=== PATIENT | female | born 1995 | race Caucasian/White ===

== ENCOUNTER 2021-08-10 15:13 | Outpatient (CLI) | payer OTHER, SELFPAY ==
--- NOTE | 2021-08-10 15:23 | US_ITS ---
WS: [id number] EARLY OBSTETRICAL ULTRASOUND (<14 WEEKS). HISTORY: SUPERVISION OF NORMAL COMPARISON: None available. Single intrauterine gestational sac is identified. Cardiac activity at 153 BPM. [place]-rump length gerard sures 1.1 cm which corresponds to a gestation of 7w1d. Normal-appearing yolk sac and amnion demonstra bernarda. No subchorionic hemorrhage. No free fluid. Normal size ovaries with no mass. US/US OB <=14 wk fetus w transvag IMPRESSION: 1. Single intrauterine gestation of 7 weeks 1 day with an EDC of 03/28/2022. 2. Normal cardiac activity.
== END 2021-08-10 15:14 | disposition home or self-care (01) ==
LOC: RAD 15:21
PROVIDERS: PCP Family Medicine; Visit Provider Family Medicine
DX: Z34.91 Encounter for supervision of normal pregnancy, unspecified, first trimester (principal); Z3A.01 Less than 8 weeks gestation of pregnancy
CPT/HCPCS: 76801; 76817

== ENCOUNTER 2021-11-04 15:27 | Outpatient (CLI) | payer OTHER, SELFPAY ==
--- NOTE | 2021-11-04 15:40 | US_ITS ---
WS: [id number] OBSTETRICAL ULTRASOUND COMPLETE HISTORY: ANATOMY COMPARISON: 08/10/2021 Single intrauterine gestation in Cephalic presentation. Cervix is Closed and normal length. Cervical length is 4.0 cm. Normal amount of amniotic fluid surrounds the fetus. Placenta: Posterior, no previa. Placenta grade 1 Heart: 133 BPM. Four chambers are identified. Outflow tracts are poorly visualized. Anatomy: Intracranial structures and spine are normal. kidneys, stomach and urinary bladd er are unremarkable. Abdominal wall, three-vessel cord and cord insertion site are normal. 4 extremities are present. profile: Unremarkable. Gender: Probably female. measurements: BPD = 4.6 cm = 19w5d HC = 16.6 cm = 19w2d AC = 14.6 cm = 19w6d FL = 3.3 cm = 20w2d EFW: 325 g. Biometry is internally concordant. AGA by ultrasound: 19w6d SEBASTIAN by ultrasound: 03/25/2022 US/US OB >= 14 weeks fetus [id number] IMPRESSION: 1. Single intrauterine gestation of 19w6d with an SEBASTIAN of 03/25/2022. Appropria te growth since the prior ultrasound. 2. Limited evaluation of the cardiac outflow tracts. Otherwise the screening s urvey is unremarkable.
== END 2021-11-04 15:28 | disposition home or self-care (01) ==
PROVIDERS: PCP Family Medicine; Visit Provider Family Medicine
DX: Z34.82 Encounter for supervision of other normal pregnancy, second trimester; Z3A.19 19 weeks gestation of pregnancy
CPT/HCPCS: 76805

== ENCOUNTER 2022-02-01 17:55 | Outpatient (CLI) | payer OTHER, SELFPAY ==
[2022-02-01] VITALS (10 sets, daily range): BP systolic 103–115; BP diastolic 64–75; PULSE 80–93; RESP 17; TEMP 36.2; BMI 29.2
[2022-02-01 19:11] LABS: Urine Appearance Clear (CLEAR); Urine Color Colorless (Yellow); pH Urine 7 (5-7)
[2022-02-01 19:12] LABS: Bilirubin Urine Neg (Negative); Blood Urine Neg (Negative); Glucose Urine UA Norm (Normal); Ketones Urine Negative (Negative); Leukocyte Esterase Urine 1+ (Negative); Nitrate Urine Negative (Negative); Protein Urine Neg (Negative); Specific Gravity, Urine 1.005 (1.005-1.030); Urobilinogen Urine Norm (Negative)
[2022-02-01 19:16] LABS: Bacteria Urine 2+ /hpf; RBC Urine 0-4 /hpf (0-2); Squamous Epithelial Cell Urine 0-4 /hpf (0-5)
[2022-02-01 19:17] LABS: Add Urine Culture? Yes
[2022-02-02 00:26] VITALS: BP 108/66; PULSE 90; RESP 15; TEMP 36.6
== END 2022-02-01 20:00 | disposition home or self-care (01) ==
LOC: OPOB 17:55 → OBGYN 18:00
PROVIDERS: PCP Family Medicine; Visit Provider Family Medicine
DX: O26.899 Other specified pregnancy related conditions, unspecified trimester (principal); Z3A.00 Weeks of gestation of pregnancy not specified; R10.9 Unspecified abdominal pain
CPT/HCPCS: 59025; 81001; 87086; 99211

== ENCOUNTER → 2022-02-18 15:55 | Outpatient (BNVA) | payer OTHER, SELFPAY | PROVIDERS: PCP Family Medicine; Visit Provider Family Medicine | DX: O09.90 Supervision of high risk pregnancy, unspecified, unspecified trimester (principal); Z3A.00 Weeks of gestation of pregnancy not specified | CPT/HCPCS: 80053; 84550; 85025 ==

== ENCOUNTER → 2022-03-03 10:43 | Outpatient (BNVA) | payer OTHER, SELFPAY | PROVIDERS: PCP Family Medicine; Visit Provider Family Medicine | DX: O09.90 Supervision of high risk pregnancy, unspecified, unspecified trimester (principal); Z3A.00 Weeks of gestation of pregnancy not specified | CPT/HCPCS: 85025 ==

== ENCOUNTER → 2022-03-10 15:45 | Outpatient (BNVA) | payer OTHER, SELFPAY | PROVIDERS: PCP Family Medicine; Visit Provider Family Medicine | DX: D69.6 Thrombocytopenia, unspecified (principal) | CPT/HCPCS: 85025 ==

== ENCOUNTER 2022-03-14 19:53 | Outpatient (CLI) | payer OTHER, SELFPAY ==
[2022-03-14] VITALS (7 sets, daily range): BP systolic 106–117; BP diastolic 70–81; PULSE 77–110; RESP 16; BMI 30.2
== END 2022-03-14 22:31 | disposition home or self-care (01) ==
LOC: OPOB 19:57 → OBGYN 19:58
PROVIDERS: PCP Family Medicine; Visit Provider Family Medicine
DX: O26.899 Other specified pregnancy related conditions, unspecified trimester (principal); Z3A.00 Weeks of gestation of pregnancy not specified; R10.9 Unspecified abdominal pain
CPT/HCPCS: 59025; 99211

== ENCOUNTER 2022-03-19 07:00 | Inpatient (IN) | payer OTHER, SELFPAY ==
[2022-03-19] VITALS (62 sets, daily range): BP systolic 83–120; BP diastolic 47–80; PULSE 57–86; TEMP 36.1–36.3; O2SAT 99–100
--- NOTE | 2022-03-19 06:39 | P.HP_ITS ---
Providers/Chief Complaint Admitting Physician: Werner Pascal MD Primary Care Provider: Werner Pascal MD Chief Complaint: IOL History of Present Illness Lianna Sawyer is a 27 year old at 39.0 weeks gestation by LMP consistent with 7-week ultrasound. Her is complicated by history of gestational thrombocytopenia, now with gestational thrombocytopenia on predniso ne. The patient has been feeling well. She denies any chest pains, shortness of breath, nausea, vomiting, flashes of light, vaginal bleeding, leakage of fluid. She began to develop thrombocytopenia that was first noted on 02/12/2022. Consultation with perinatology was done and the patient was started on prednisone 20 mg twice a day for 1 week that was gradually tapered down to a current dose of 20 mg once a day. Her platelets have increased and have stayed in the low 100s with this dosage. Despite the initial low numbers, perinatology feels that this is likely due to to gestational hypertension, however ITP would be in the differential. Anesthesia was consulted prior to delivery and they felt that as long as the numbers are around 100 or better, that a laboring epidural would be doable. Medications/Allergies Home Medications Medication Instructions Recorded Confirmed Last Taken Type ferrous sulfate 325 mg (65 mg 325 mg PO DAILY 02/01/22 03/14/22 03/14/22 History iron) tablet (Iron (ferrous sulfate)) prenat.vits,shona,[id number] 1 tab PO DAILY 02/01/22 03/14/22 03/14/22 History Allergies Allergy/AdvReac Type Severity Reaction Status Date / Time codeine Allergy ADR-Nausea Verified 03/14/22 21:28 PFSH Acute 2 PFSH: Social History (Updated 03/19/22 @ 06:45 by Werner Pascal MD) Smoking and tobacco status: never smoked Alcohol intake: never Substance/Drug Use: never Physical Exam Narrative: General: Alert and oriented x3 Eyes: Pupils equal round and reactive to light and accommodation Mouth: Mucous membranes moist, pharynx non-erythematous Cardiac: Regular rate and rhythm without murmurs Lungs: Clear to auscultation bilaterally without wheezes, crackles or rhonchi Abdomen: Soft, non-tender, fundus consistent with gestational age Extremities: Trace edema in the bilateral lower extremities A&P Assessment and plan (1) Gestational thrombocytopenia: Status: Acute (2) Intrauterine : Status: Acute Plan The patient is doing well at this time. She is having no signs of bleeding or complications related to thrombocytopenia. We will proceed with induction of labor with Pitocin. CBC is currently pending. We will plan for a labor and epidural as long as her platelets are around 100 or better. The patient will need to be on a tapering dose of prednisone . The patient is GBS negative. Proceed with routine care otherwise. All questions were answered. Patient and her are in agreement with the current plan of care. Attestations Medical Necessity Statement*: The patient will be here for greater than 2 midnights due to routine intrapartum and management of labor and delivery. Coding Level of Care Code Acute [facility] Teacher for g Fwd Diagnoses Gestational thrombocytopenia O99.119; D69.6 Intrauterine Z34.90
[2022-03-19 07:09] LABS: Basophils % 0.3 %; Eosinophils # 0.1 10^3/uL (0.0-0.8); Eosinophils % 1.6 %; Hematocrit 34.6 % (37.0-47.0); Hemoglobin 11.3 g/dL (11.5-15.3); Lymphocytes # 1.5 10^3/uL (0.8-4.8); Lymphocytes % 19.1 %; Mean Corpuscular HGB Conc 32.7 g/dL (30.0-36.0); Mean Corpuscular Hemoglobin 30.1 pg (28.0-34.0); Mean Platelet Volume 13.4 fL (7.4-10.4); Monocytes # 0.5 10^3/uL (0.2-0.9); Monocytes % 6.4 %; Neutrophils # 5.51 10^3/uL (1.8-7.7); Neutrophils % 71.8 %; Nucleated Red Blood Cells % 0 %; Platelet Count 119 10^3/cmm (130-400); Red Blood Count 3.76 10^6/uL (4.1-5.3); Red Cell Distribution Width 12.9 % (12.1-15.1); White Blood Count 7.7 10^3/uL (4.0-10.0)
[2022-03-19] MEDS: dextrose 5%-lactated ringers 1,000 ML 125 ML IV (07:22)
[2022-03-19] MEDS: oxytocin 30 UNIT/500 ML BAG IV (07:25)
[2022-03-19] MEDS: alum-mag-hydroxide-sime 30 mL UDC PO (07:49)
[2022-03-19] MEDS: dextrose 5%-lactated ringers 1,000 ML 105 ML IV (15:02)
[2022-03-19] MEDS: lactated ringers 1,000 ML 999 ML IV ×2 (18:26→19:31)
--- NOTE | 2022-03-19 19:15 | ANES.PREANE2 ---
Pre-Anesthetic Assessment Height/Weight: Height 1.63 m Weight 79.379 kg Temp Pulse BP Pulse Ox 97.3 F L 71 116/65 100 03/19/22 16:04 03/19/22 19:29 03/19/22 19:29 03/19/22 19:29 Preop Diagnosis: IUP AICHA Familial anesthetic complications: none Was Beta Elder taken within 24 hours: N/A Was Clonidine taken within 24 hours: N/A Last intake: meal 0600 clears currently Social No alcohol and No tobacco Exam alert and oriented x 3 Airway Submandibular: within normal limits Cervical ROM: within normal limits Mallampati: Class II Dentition: full History/ROS No significant complaints Neuropsych thrombocyopenia during . PLT 119 currently. Anesthetic Plan ASA status: 2 Anesthesia: Anesthesia Evaluation and Regional (specify below) (epidural) Risk of > 500 ml blood loss (7ml/kg in children): Yes, adequate IV access and fluids planned Medications/Allergies Home Medications Medication Instructions Recorded Confirmed Last Taken Type ferrous sulfate 325 mg (65 mg 325 mg PO DAILY 02/01/22 03/19/22 03/18/22 History iron) tablet (Iron (ferrous sulfate)) prenat.vits,shona,mad-ybgp-qigxi 1 tab PO DAILY 02/01/22 03/19/22 03/18/22 History prednisone 10 mg tablet 10 mg PO DAILY 03/19/22 03/19/22 03/18/22 History Allergies Allergy/AdvReac Type Severity Reaction Status Date / Time codeine Allergy ADR-Nausea Verified 03/14/22 21:28 Current Medications Generic Name Dose Route Start Last Admin Trade Name Freq PRN Reason Stop Dose Admin Al Hydrox/Mg Hydrox/Simethicone 30 ml 03/19/22 06:46 03/19/22 07:49 Dwzp-Xyl-Auxabkxei-Deandra 30 Ml Udc PO 30 ml Q4H PRN Administration INDIGESTION Oxytocin 30 unit in 500 mls @ 2 mls/hr 03/19/22 06:45 03/19/22 10:06 Pitocin IV 20 milliunit/min .Q24H ALEC 20 mls/hr Titration Protocol 2 MILLIUNIT/MIN Dextrose/Lactated Ringer's 1,000 mls @ 125 mls/hr 03/19/22 07:00 03/19/22 18:26 Dextrose 5%-Lactated Ringers IV Infused .Q8H ALEC Infusion Lactated Ringer's 1,000 mls @ 999 mls/hr 03/19/22 18:17 03/19/22 19:31 Lactated Ringers IV 999 mls/hr .Q1H1M PRN Administration See label comments PFSH Anesthesia Social History (Updated 03/19/22 @ 06:45 by Werner Pascal MD) Smoking and tobacco status: never smoked Alcohol intake: never Substance/Drug Use: never Female Reproductive History : 4 Data Anesthesia : 03/19/22 06:35 Short CBC 03/19/22 Range/Units 06:35 WBC 7.7 (4.0-10.0) 10^3/uL Hgb 11.3 L (11.5-15.3) g/dL Hct 34.6 L (37.0-47.0) % MCV 92.0 (81-99) fl Plt Count 119 L (130-400) 10^3/cmm Neut % (Auto) 71.8 % Neut # (Auto) 5.51 (1.8-7.7) 10^3/uL Cardiac Studies: No Data to Display
--- NOTE | 2022-03-19 19:36 | ANES.PROC ---
Anesthesia Procedures Procedure/Date: 03/19/22 epidural Epidural: Time Out Performed: Yes Consents Signed: Procedure Consent Consent: from patient, risks and benefits reviewed and patient agrees to proceed Lumbar Level: L2-L3 Epidural position: sitting Epidural procedure: sterile prep of area, 1% lidocaine to numb the area, 18 g needle, negative for paresthesia passed, test dose given, 1.5% xylocaine 1:200k epi, placed PCEA, no systemic response, sterile dressing applied, L.U.D. no apparent complications and 0.2% Ropiavacaine @ mls/hr (13) Additional Comments: GRIS at 5, taped at 12 at skin.
[2022-03-19] MEDS: ondansetron 2 mg/ML SDV 2 mL 4 MG IVP (20:46)
[2022-03-20] VITALS (28 sets, daily range): BP systolic 91–124; BP diastolic 55–71; PULSE 63–92; RESP 15–16; TEMP 36.6–36.8; O2SAT 96–98
[2022-03-20] MEDS: dextrose 5%-lactated ringers 1,000 ML 125 ML IV (00:14)
--- NOTE | 2022-03-20 02:55 | PM.DELIVERY ---
Delivery Note: Date of delivery: March 20, 2022 Pre-delivery diagnoses: 1. Intrauterine at 39.1 weeks gestation 2. Gestational thrombocytopenia on prednisone Post-delivery diagnoses: 1. Intrauterine status post spontaneous vaginal delivery at 39.1 weeks gestation 2. Gestational thrombocytopenia on prednisone 3. Delivery of healthy female weighing 7 pounds 0 ounces with Apgars of 9 and 9 Procedure: Spontaneous vaginal delivery Delivering Physician: Werner Pascal MD Estimated blood loss (mL): 150 Findings: 1. Intact placenta with central umbilical cord insertion site. 2. Delivery of healthy female weighing 7 pounds 0 ounces with Apgars of 9 and 9 Pre-Delivery Course: Lianna Sawyer is a 27 year old G4 now P3 status post spontaneous vaginal delivery at 39.1 weeks gestation by LMP consistent with 7-week ultrasound.? Her was complicated by history of gestational thrombocytopenia, now with gestational thrombocytopenia on prednisone. She began to develop thrombocytopenia that was first noted on 02/12/2022.? Consultation with perinatology was done and the patient was started on prednisone 20 mg twice a day for 1 week that was gradually tapered down to a current dose of 20 mg once a day.? Her platelets have increased and have stayed in the low 100s with this dosage.? Despite the initial low numbers, perinatology feels that this is likely due to to gestational hypertension, however ITP would be in the differential.? Anesthesia was consulted prior to delivery and they felt that as long as the numbers are around 100 or better, that a laboring epidural would be doable. The patient was brought in for induction of labor on the morning of 03/19/2022 and was 2 cm dilated at that time. The patient was started on IV Pitocin and a CBC was done showing a platelet count of 119. The patient made gradual change and was 4 cm by the evening of 03/19/2022. She had stalled out in the range, so AROM was performed at approximately 11:15 PM. Clear fluid was noted. Patient then continued to make steady change and by 2:18 AM on 03/20/2022 she was complete. Delivery: The patient began pushing at 2:27 AM on 03/20/2022. The patient pushed well and the infant delivered in the OA position at 2:36 AM. There is no nuchal cord. The right shoulder was the anterior shoulder and it delivered with ease. The rest of the delivered with ease. Infant was crying immediately upon delivery and the mouth and nose were bulb suctioned by myself. The infant was placed on the mother's chest where the nurses were waiting to care for her. The cord was clamped by myself after approximately 1 minute and cut by the 's father. Cord blood was obtained. The cord was then drained of blood and traction was placed on the umbilical cord and the uterus was massaged. The placenta delivered without complication at 2:41 AM on 03/20/2022. The placenta was noted to be intact with a central umbilical cord insertion site. The cervix was inspected and no lacerations were noted. The vaginal wall was inspected and no lacerations were noted. The patient had some heavier bleeding initially that has now slowed down. This will continue to be watched. A&P Assessment and plan (1) Spontaneous vaginal delivery: Status: Acute (2) Gestational thrombocytopenia: Status: Acute Coding Level of Care Code Acute It Infrastructure Specialist for Chg Fwd Diagnoses Spontaneous vaginal delivery O80 Gestational thrombocytopenia O99.119; D69.6
[2022-03-20] MEDS: HYDROcodone-acetaminophen 5-325 mg Tablet PO (04:42)
[2022-03-20] MEDS: benzocaine-menthol 78 gm Canister 1 SPRAY TOPICAL (05:39)
[2022-03-20] MEDS: lanolin oint 7 gm 1 APPLIC TOPICAL (05:39)
[2022-03-20] MEDS: docusate sodium 100 mg Capsule PO ×2 (12:23→18:32)
[2022-03-20] MEDS: ibuprofen 800 mg tablet PO ×2 (12:23→18:32)
[2022-03-20] MEDS: prenatal vitamin Capsule 1 CAP PO (12:23)
[2022-03-20] MEDS: predniSONE 10 mg Tablet PO (12:24)
[2022-03-20 16:46] LABS: Hemoglobin 10.1 g/dL (11.5-15.3); Mean Corpuscular HGB Conc 33.7 g/dL (30.0-36.0); Mean Corpuscular Hemoglobin 30.6 pg (28.0-34.0); Mean Corpuscular Volume 90.9 fl (81-99); Mean Platelet Volume 12.9 fL (7.4-10.4); Platelet Count 107 10^3/cmm (130-400); Red Cell Distribution Width 12.8 % (12.1-15.1); White Blood Count 8.2 10^3/uL (4.0-10.0)
[2022-03-21] MEDS: ibuprofen 800 mg tablet PO ×2 (00:56→09:01)
[2022-03-21 05:00] VITALS: BP 101/59; PULSE 62; RESP 16; TEMP 36.7
[2022-03-21] MEDS: docusate sodium 100 mg Capsule PO (09:01)
[2022-03-21] MEDS: prenatal vitamin Capsule 1 CAP PO (09:01)
--- NOTE | 2022-03-21 09:24 | ANE.PACU2 ---
Inpatient post-anesthesia follow up: Airway intact: Yes Vital signs: Temperature 98.0 F Pulse Rate 62 Respiratory Rate 16 Blood Pressure 101/59 Pulse Oximetry 96 Oxygen Delivery Me thod Room Air Oxygen Flow Rate Fraction of Inspir ed Oxygen Hydration adequate: Yes Nausea and vomiting: No Pain level: 1 Mental status: Baseline
--- NOTE | 2022-03-21 09:28 | PM.DCS ---
Discharge Providers Date of Admission: 03/19/22 07:00 Date of Discharge: March 21, 2022 Attending Provider at Admission: Werner Pascal MD Attending Provider at Discharge: Werner Pascal MD Primary Care Provider: Werner Pascal MD Diagnoses at Discharge Discharge Diagnosis (1) Spontaneous vaginal delivery: Status: Acute (2) Gestational thrombocytopenia: Status: Acute Other Information Additional DC diagnoses/information: 1.? Intrauterine status post spontaneous vaginal delivery at 39.1 weeks gestation 2.? Gestational thrombocytopenia on prednisone 3.? Delivery of healthy infant female weighing 7 pounds 0 ounces with Apgars of 9 and 9 Reason for Visit Reason for Visit: IOL Hospital Course Hospital Course Lianna Sawyer is a 27 year old G4 now P3 status post spontaneous vaginal delivery at 39.1 weeks gestation by LMP consistent with 7-week ultrasound.? Her was complicated by history of gestational thrombocytopenia, now with gestational thrombocytopenia on prednisone. She began to develop thrombocytopenia that was first noted on 02/12/2022.? Consultation with perinatology was done and the patient was started on prednisone 20 mg twice a day for 1 week that was gradually tapered down to a current dose of 20 mg once a day.? Her platelets have increased and have stayed in the low 100s with this dosage.? Despite the initial low numbers, perinatology felt that this is likely due to to gestational hypertension, however ITP would be in the differential.? The patient was brought in for induction of labor on the morning of 03/19/2022 and was 2 cm dilated at that time.? The patient was started on IV Pitocin and a CBC was done showing a platelet count of 119.? The patient made gradual change and was 4 cm by the evening of 03/19/2022.? She had stalled out in the range, so AROM was performed at approximately 11:15 PM.? Clear fluid was noted.? Patient then continued to make steady change and by 2:18 AM on 03/20/2022 she was complete. The patient began pushing at 2:27 AM on 03/20/2022.? The patient pushed well and the delivered in the OA position at 2:36 AM.? There is no nuchal cord.? The right shoulder was the anterior shoulder and it delivered with ease.? The rest of the infant delivered with ease.? was crying immediately upon delivery and the mouth and nose were bulb suctioned by myself.? The was placed on the mother's chest where the nurses were waiting to care for her.? The cord was clamped by myself after approximately 1 minute and cut by the infant's father.? Cord blood was obtained.? The cord was then drained of blood and traction was placed on the umbilical cord and the uterus was massaged.? The placenta delivered without complication at 2:41 AM on 03/20/2022.? The placenta was noted to be intact with a central umbilical cord insertion site.? The cervix was inspected and no lacerations were noted.? The vaginal wall was inspected and no lacerations were noted.? The patient had some heavier bleeding initially that has now slowed down.? the patient is doing well. She is ambulating, voiding, passing gas and tolerating food by mouth. Her bleeding has decreased well. She is showing no signs of significant bruising issues. Her platelets are 107. We will plan to have her decrease to prednisone 10 mg daily for 5 days, followed by 5 mg for 5 days, then 2.5 mg for 5 days and then stop. We will plan to recheck her platelets in 2 weeks to be sure that they are not decreasing significantly. We will check again at 6 weeks . The patient is breast-feeding well and having no complications with this. Overall the patient is doing well and we can discharge home today. Routine discharge instructions were discussed including precautions for bleeding. Follow-up at 6 weeks or sooner if her platelets are dropping. We will give orders to get levels checked at 2 weeks and 6 weeks . Physical Exam Narrative: General: Alert and oriented x3 Cardiac: Regular rate and rhythm without murmurs Lungs: Clear to auscultation bilaterally without wheezes, crackles or rhonchi Abdomen: Soft, mild tenderness over uterus. The uterus is firm and 2 cm below the umbilicus. Extremities: Trace edema in the bilateral lower extremities Urinary Catheter Management: Schmitz: Cath Placed During This Visit: yes, but has since been removed by the nurse Reason for Continuing Indwelling Catheter: Required Immobilization for Trauma or Surgery or Anesthesia Urinary Catheter Date of Insertion: 03/19/22 Urinary Catheter Time of Insertion: 20:26 Date Urinary Catheter Removed: 03/20/22 Time Urinary Catheter Discontinued: 02:26 Discharge Data Studies Completed and Pending Laboratory Results WBC 8.2 10^3/uL (4.0-10.0) 03/20/22 16:30 RBC 3.30 10^6/uL (4.1-5.3) L 03/20/22 16:30 Hgb 10.1 g/dL (11.5-15.3) L 03/20/22 16:30 Hct 30.0 % (37.0-47.0) L 03/20/22 16:30 MCV 90.9 fl (81-99) 03/20/22 16:30 MCH 30.6 pg (28.0-34.0) 03/20/22 16:30 MCHC 33.7 g/dL (30.0-36.0) 03/20/22 16:30 RDW 12.8 % (12.1-15.1) 03/20/22 16:30 Plt Count 107 10^3/cmm (130-400) L 03/20/22 16:30 MPV 12.9 fL (7.4-10.4) H 03/20/22 16:30 Neut % (Auto) 71.8 % 03/19/22 06:35 Lymph % (Auto) 19.1 % 03/19/22 06:35 [place] % (Auto) 6.4 % 03/19/22 06:35 Eos % (Auto) 1.6 % 03/19/22 06:35 Baso % (Auto) 0.3 % 03/19/22 06:35 Neut # (Auto) 5.51 10^3/uL (1.8-7.7) 03/19/22 06:35 Lymph # (Auto) 1.5 10^3/uL (0.8-4.8) 03/19/22 06:35 [place] # (Auto) 0.5 10^3/uL (0.2-0.9) 03/19/22 06:35 Eos # (Auto) 0.1 10^3/uL (0.0-0.8) 03/19/22 06:35 Baso # (Auto) 0.0 10^3/uL (0.0-0.1) 03/19/22 06:35 Nucleated RBC % (auto) 0 % 03/19/22 06:35 Nucleated RBCs # 0.0 /100WBC 03/19/22 06:35 Vitals Last Vital Signs Temp 98.0 F 03/21/22 05:00 Pulse 62 03/21/22 05:00 Resp 16 03/21/22 05:00 BP 101/59 03/21/22 05:00 Pulse Ox 96 03/20/22 16:30 Discharge Plan Discharge Patient Disposition: Home Condition: Good Prescriptions: New ibuprofen 800 mg Tablet 800 mg PO TID Qty: 60 0RF prednisone 5 mg tablet 5 mg PO DAILY Qty: 10 0RF Rx Instructions: Take 10mg daily for 5 days, then 5mg daily for 5 days then 2.5mg daily for 5 days then stop. Continued prenat.vits,shona,nwp-kinb-kizie capsule 1 tab PO DAILY 0RF ferrous sulfate [Iron (ferrous sulfate)] 325 mg (65 mg iron) Tablet 325 mg PO DAILY Qty: 30 0RF Discontinued prednisone 10 mg tablet 10 mg PO DAILY 0RF Discharge Orders: Discharge Order (Routine); Ordered 03/21/22 Ordered By: Werner Pascal Referrals: Werner Pascal MD [Primary Care Provider] - 6 Weeks Discharge Diet: Regular Discharge Activity: Limit activity as instructed Patient Instructions: Depression (DC), Bleeding (DC), Preeclampsia and Eclampsia After Delivery (GEN), OB Discharge Report, OB Food/Drug Interaction Guide, OB Care at Home, Opioid Safety, OB [facility] - [facility], OB Vaginal Deliveries, Abnormal Bleeding Activity Restrictions/Additional Instructions: Nothing per vagina for 6 weeks. If you have any concern for increased bruising or bleeding, please contact Dr. Pascal right away for a repeat CBC. I would recommend taking showers over taking baths for the first 6 weeks to decrease risk for infection. Discharge Attestations Time Spent in Discharge Care*: greater than 30 min Quality Metrics Clinical Quality Measures [ No reported AMI, CVA or VTE this stay] Coding Level of Care Code Acute Chg FW DC note Diagnoses Spontaneous vaginal delivery O80 Gestational thrombocytopenia O99.119; D69.6
[2022-03-21 10:00] VITALS: BP 103/67; PULSE 80; RESP 16; TEMP 36.7; O2SAT 97
== END 2022-03-21 10:00 | disposition home or self-care (01) | DRG 807 ==
LOC: OPOB 07:51 → OBGYN 07:51
PROVIDERS: Admitting Provider Family Medicine; PCP Family Medicine; Visit Provider Family Medicine
DX: O99.12 Other diseases of the blood and blood-forming organs and certain disorders involving the immune mechanism complicating childbirth (principal); Z37.0 Single live birth; D69.6 Thrombocytopenia, unspecified; Z3A.39 39 weeks gestation of pregnancy
CPT/HCPCS: 36415; 51702; 59409; 85025; 85027; J2405; J2795; J7512

== ENCOUNTER → 2022-04-06 11:02 | Outpatient (BNVA) | payer OTHER, SELFPAY | PROVIDERS: PCP Family Medicine; Visit Provider Family Medicine | DX: O99.119 Other diseases of the blood and blood-forming organs and certain disorders involving the immune mechanism complicating pregnancy, unspecified trimester (principal); D69.6 Thrombocytopenia, unspecified | CPT/HCPCS: 85025 ==

== ENCOUNTER → 2022-05-03 14:37 | Outpatient (BNVA) | payer OTHER, SELFPAY | PROVIDERS: PCP Family Medicine; Visit Provider Family Medicine | DX: Z39.2 Encounter for routine postpartum follow-up (principal); D69.6 Thrombocytopenia, unspecified | CPT/HCPCS: 85025; 87624 ==

== ENCOUNTER 2022-05-12 13:23 | Oncology outpatient (recurring) (ONCR) | payer OTHER, SELFPAY | END 2022-05-27 23:59 | disposition home or self-care (01) | PROVIDERS: PCP Family Medicine; Visit Provider Internal Medicine Hematology & Oncology | DX: D69.6 Thrombocytopenia, unspecified (principal); O99.119 Other diseases of the blood and blood-forming organs and certain disorders involving the immune mechanism complicating pregnancy, unspecified trimester; Z3A.00 Weeks of gestation of pregnancy not specified; Z79.52 Long term (current) use of systemic steroids; Z79.899 Other long term (current) drug therapy | CPT/HCPCS: 80503; 85025 ==

== ENCOUNTER 2022-10-15 16:50 | Emergency (ER) | payer BC, SELFPAY ==
[2022-10-15 16:55] VITALS: BP 141/92; PULSE 80; RESP 13; TEMP 36.8; O2SAT 99; BMI 26.2
--- NOTE | 2022-10-15 18:49 | ED_ITS ---
HPI - Female Genitourinary General: Chief complaint: Vaginal Bleeding Stated complaint: heavy vaginal bleeding Time Seen by Provider: 10/15/22 18:02 History of Present Illness: Patient is a 27-year-old female comes to the ED with vaginal bleeding. Patient gave to a healthy baby back in February 2022. 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 she has not had any vaginal bleeding or a period since the start of her symptoms 2 days ago. She had light spotting 2 days ago and it has since progressed into more heavier bleeding. Yesterday she was going through 1 pad every 3 or so hours. Today she is averaging 1 pad every 1-2 hours. Denies any abdominal pain, fevers, nausea/vomiting, bladder or bowel symptoms. She endors es feeling some generalized fatigue and weakness. She also reports some very mild cramping. Associated symptoms: Deny abdominal pain, headache(s) or nausea Review of Systems Const: Denies: fever(s), chills or fatigue Eyes: Denies: change in vision or eye discomfort ENMT: Denies: throat pain, odynophagia, nasal discharge or nasal congestion Card: Denies: chest pain, palpitations, edema, swelling of feet/ankles, dyspnea on exertion or orthopnea Resp: Denies: dyspnea, productive cough or non-productive cough GI: Denies: abdominal pain, nausea, vomiting, diarrhea, constipation or hematochezia : Reports: vaginal bleeding and pelvic pain (Mild cramping); Denies: flank pain, dysuria or hematuria Musc: Denies: neck pain, back pain or extremity swelling Skin/Breast: Denies: rash or new lesions Neuro: Denies: headache(s), numbness in extremities or weakness in extremities PFS ED PFSH: Medical History Gestational thrombocytopenia PCOS (polycystic ovarian syndrome) Surgical History No history of previous surgery Family History Other Anesthesia complication Dementia Stroke Denies family history of Diabetes CAD (coronary artery disease) Clotting disorder Hyperlipidemia Psychiatric illness Chronic kidney disease (CKD) Suicide Bleeding disorder Lung disease Cancer Hypertension Social History Smoking and tobacco status: never smoked Alcohol intake: never Physical Exam Const: COMMON NORMALS: no acute distress, patient oriented x3 and alert GENERAL APPEARANCE: cooperative and comfortable HENMT: COMMON NORMALS: normocephalic HEAD & SCALP: normocephalic MOUTH: Normal oral and palatal mucosa present THROAT: posterior oropharynx normal and uvula midline Neck/C-Spine: COMMON NORMALS: supple GENERAL: Yes normal visual inspection Resp: COMMON NORMALS: normal respiratory effort, No retractions, No use of accessory muscles and clear to auscultation bilaterally AUSCULTATION: clear to auscultation bilaterally Cardio: COMMON NORMALS: regular rate, regular rhythm, S1 normal heart sound present, S2 normal heart sound present, No gallops present (Cardio), No clicks present (Cardio), No murmurs present (Cardio) and Peripheral pulses 2+ throughout RATE: regular rate RHYTHM: regular rhythm HEART SOUNDS: S1 normal heart sound present and S2 normal heart sound present PERIPHERAL PULSES: Peripheral pulses 2+ throughout GI: COMMON NORMALS: Normal to inspection, nondistended, normoactive bowel sounds present, Soft to palpation, non-tender and no masses PALPATION: Yes Soft to palpation : COMMON NORMALS: Yes no CVA tenderness BLADDER/KIDNEY EXAM: Yes no CVA tenderness Back/Pelvis: COMMON NORMALS: no CVA tenderness Extremity: COMMON NORMALS: normal to inspection Neuro: COMMON NORMALS: patient oriented x3 SENSORIUM/ORIENTATION: Yes alert GAIT: Yes Normal gait present Skin: GENERAL SKIN EXAM: dry skin Course Vital Signs: Vital signs: Vital Signs Temperature 98.3 F 10/15/22 16:55 Pulse Rate 80 10/15/22 16:55 Respiratory Rate 13 10/15/22 16:55 Blood Pressure 141/92 10/15/22 16:55 Pulse Oximetry 99 10/15/22 16:55 Oxygen Delivery Me thod 10/15/22 16:55 [facility] - Female Medical Decision Making Patient is a 27-year-old female comes to the ED with vaginal bleeding. Patient gave to a healthy baby back in February 2022. 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 she has not had any vaginal bleeding or a period since the start of her symptoms 2 days ago. She had light spotting 2 days ago and it has since progressed into more heavier bleeding. Yesterday she was going through 1 pad every 3 or so hours. Today she is averaging 1 pad every 1-2 hours. Denies any abdominal pain, fevers, nausea/vomiting, bladder or bowel symptoms. Vitals are stable. Exam is benign. CBC, CMP and UA are unremarkable. hCG is negative. Ultrasound of the pelvis showed no acute findings. Patient was diagnosed with menorrhagia and was discharged home. She was told to follow-up with her [facility] doctor next week for reevaluation. Strict return to ED precautions given. Patient understood and agreed with plan. Lab Data I reviewed the patient's lab results. 10/15/22 18:45 10/15/22 18:45 Radiology Impressions Pelvic/Transvag US 10/15/22 19:18 IMPRESSION: 1. No acute abnormality in the pelvis. 2. Incidental/nonacute findings are listed in the report. Laboratory Results WBC 5.8 10^3/uL (4.0-10.0) 10/15/22 18:45 RBC 4.26 10^6/uL (4.1-5.3) 10/15/22 18:45 Hgb 12.9 g/dL (11.5-15.3) 10/15/22 18:45 Hct 38.3 % (37.0-47.0) 10/15/22 18:45 MCV 89.9 fl (81-99) 10/15/22 18:45 MCH 30.3 pg (28.0-34.0) 10/15/22 18:45 MCHC 33.7 g/dL (30.0-36.0) 10/15/22 18:45 RDW 12.0 % (12.1-15.1) L 10/15/22 18:45 Plt Count 164 10^3/cmm (130-400) 10/15/22 18:45 MPV 11.9 fL (7.4-10.4) H 10/15/22 18:45 Neut % (Auto) 51.8 % 10/15/22 18:45 Lymph % (Auto) 30.3 % 10/15/22 18:45 [place] % (Auto) 6.7 % 10/15/22 18:45 Eos % (Auto) 10.0 % 10/15/22 18:45 Baso % (Auto) 0.9 % 10/15/22 18:45 Neut # (Auto) 2.99 10^3/uL (1.8-7.7) 10/15/22 18:45 Lymph # (Auto) 1.8 10^3/uL (0.8-4.8) 10/15/22 18:45 [place] # (Auto) 0.4 10^3/uL (0.2-0.9) 10/15/22 18:45 Eos # (Auto) 0.6 10^3/uL (0.0-0.8) 10/15/22 18:45 Baso # (Auto) 0.1 10^3/uL (0.0-0.1) 10/15/22 18:45 Nucleated RBC % (auto) 0 % 10/15/22 18:45 Nucleated RBCs # 0.0 /100WBC 10/15/22 18:45 Sodium 142 mmol/L (136-145) 10/15/22 18:45 Potassium 4.7 mmol/L (3.5-5.1) 10/15/22 18:45 Chloride 108 mmol/L (98-107) H 10/15/22 18:45 Carbon Dioxide 22 mmol/L (22-29) 10/15/22 18:45 Anion Gap 16.7 (5-19) 10/15/22 18:45 BUN 19 mg/dL (6-20) 10/15/22 18:45 Creatinine 0.7 mg/dL (0.5-0.9) 10/15/22 18:45 GFR Calculation 98.9 mL/min (90-130) 10/15/22 18:45 Glucose 91 mg/dL (65-115) 10/15/22 18:45 Calculated Osmolality 296 mOsm/kg (285-295) H 10/15/22 18:45 Calcium 8.9 mg/dL (8.5-10.5) 10/15/22 18:45 Total Bilirubin 0.3 mg/dL (0.15-1.2) 10/15/22 18:45 AST 26 U/L (0-32) 10/15/22 18:45 ALT 25 U/L (0-33) 10/15/22 18:45 Alkaline Phosphatase 81 U/L (35-105) 10/15/22 18:45 Total Protein 6.9 g/dL (6.6-8.7) 10/15/22 18:45 Albumin 4.0 g/dL (3.5-5.2) 10/15/22 18:45 Globulin 2.9 g/dL (1.3-4.6) 10/15/22 18:45 HCG, Qual Negative (Negative) 10/15/22 18:45 Urine Color Red (Yellow) 10/15/22 19:16 Urine Appearance Cloudy (CLEAR) A 10/15/22 19:16 Urine pH 6 (5-7) 10/15/22 19:16 Ur Specific Hiko 1.020 (1.005-1.030) 10/15/22 19:16 Urine Protein 1+ (Negative) H 10/15/22 19:16 Urine Glucose (UA) Norm (Normal) 10/15/22 19:16 Urine Ketones 1+ (Negative) H 10/15/22 19:16 Urine Blood 3+ (Negative) H 10/15/22 19:16 Urine Nitrate Negative (Negative) 10/15/22 19:16 Urine Bilirubin Neg (Negative) 10/15/22 19:16 Urine Urobilinogen Norm mg/dL (Negative) 10/15/22 19:16 Ur Leukocyte Esterase Negative (Negative) 10/15/22 19:16 Urine RBC Too numerous to cnt /hpf (0-2) H 10/15/22 19:16 Urine WBC None /hpf (0-5) 10/15/22 19:16 Ur Squamous Epith Cells 0-4 /hpf (0-5) H 10/15/22 19:16 Amorphous Sediment Not Reportable 10/15/22 19:16 Urine Bacteria None /hpf (NONE) 10/15/22 19:16 Discharge Plan Discharge Patient Disposition: Home Clinical Impression: Menorrhagia Qualifiers: Menorrhagia type: with regular cycle Qualified Code(s): N92.0 - Excessive and frequent menstruation with regular cycle Condition: Stable Prescriptions: No Action acetaminophen [Tylenol] 325 mg capsule 325 mg PO QID PRN norethindrone (contraceptive) 0.35 mg tablet 0.35 mg PO DAILY Qty: 28 11RF prenat.vits,shona,[id number] capsule 1 tab PO DAILY Iron (ferrous sulfate) 325 mg (65 mg iron) Tablet 325 mg PO DAILY Qty: 30 0RF Discharge Orders: Discharge ED (Routine); Ordered 10/15/22 Ordered By: Werner Valdez Referrals: Werner Pascal MD [Primary Care Provider] - Discharge Diet: Regular Discharge Activity: Increase activity as tolerated Patient Instructions: Menorrhagia (ED) Activity Restrictions/Additional Instructions: Follow-up with medical provider as directed in the next 2 to 3 days for reevaluation. Return to the ED or your medical provider if condition worsens. Please read and understand discharge instructions. Thank you for choosing [facility] for your healthcare needs today. Please realize this is an emergency room and that we are providing you with a medical screening exam and this may not be complete and all inclusive of all the testing and or work up that you may need to determine your ailment or severity of your illness. It is very important that you follow up as instructed or that you return to the Emergency Department should you have concerns or if your condition changes or worsens in any way. 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
[2022-10-15 18:56] LABS: Basophils # 0.1 10^3/uL (0.0-0.1); Basophils % 0.9 %; Eosinophils # 0.6 10^3/uL (0.0-0.8); Hematocrit 38.3 % (37.0-47.0); Hemoglobin 12.9 g/dL (11.5-15.3); Lymphocytes # 1.8 10^3/uL (0.8-4.8); Lymphocytes % 30.3 %; Mean Corpuscular HGB Conc 33.7 g/dL (30.0-36.0); Mean Corpuscular Hemoglobin 30.3 pg (28.0-34.0); Mean Corpuscular Volume 89.9 fl (81-99); Mean Platelet Volume 11.9 fL (7.4-10.4); Monocytes # 0.4 10^3/uL (0.2-0.9); Monocytes % 6.7 %; Neutrophils # 2.99 10^3/uL (1.8-7.7); Neutrophils % 51.8 %; Nucleated Red Blood Cells % 0 %; Platelet Count 164 10^3/cmm (130-400); Red Blood Count 4.26 10^6/uL (4.1-5.3); White Blood Count 5.8 10^3/uL (4.0-10.0)
[2022-10-15 19:10] LABS: HCG, Serum Qual Negative (Negative)
[2022-10-15 19:15] LABS: Alanine Aminotransferase 25 U/L (0-33); Alkaline Phosphatase 81 U/L (35-105); Anion Gap 16.7 (5-19); Aspartate Amino Transferase 26 U/L (0-32); Blood Urea Nitrogen 19 mg/dL (6-20); Calcium 8.9 mg/dL (8.5-10.5); Carbon Dioxide 22 mmol/L (22-29); Chloride 108 mmol/L (98-107); Globulin 2.9 g/dL (1.3-4.6); Glomerular Filtration Rate 98.9 mL/min (90-130); Glucose 91 mg/dL (65-115); Osmolality Calculated 296 mOsm/kg (285-295); Potassium 4.7 mmol/L (3.5-5.1); Sodium 142 mmol/L (136-145); Total Bilirubin 0.3 mg/dL (0.15-1.2); Total Protein 6.9 g/dL (6.6-8.7)
--- NOTE | 2022-10-15 19:18 | USR_ITS ---
PROCEDURE INFORMATION: Exam: US Pelvis Complete, Transabdominal and US Pelvis, Transvaginal Exam date and time: 10/15/2022 8:06 PM Age: 27 years old Clinical indication: Menstruation abnormalities; Excessive menstruation; With regular cycle; Patient HX: Patient is 6month post and this is her first cycle passed the initial post bleeding; Additional info: Heavy vaginal bleeding and cramping TECHNIQUE: Imaging protocol: Real-time complete transabdominal and transvaginal pelvic ultrasound with image documentation. Transvaginal imaging was used for better evaluation of the endometrium, adnexa, and/or cervix. COMPARISON: US OB >= 14 weeks fetus [id number] 11/04/2021 3:54 PM FINDINGS: Uterus: The uterus measures 7.8 x 4.5 x 6.3 cm. No myometrial abnormality. The endometrium is unremarkable. Endometrium measures 6.1 mm. Cervix: Multiple Nabothian cysts in the cervix. Right ovary/adnexa: Multiple subcentimeter follicles in the right ovary. The right ovary measures 3.2 x 1.7 x 2.8 cm with a volume of 8.3 ml. There is flow in the right ovary on Doppler imaging. Left ovary/adnexa: Multiple subcentimeter follicles in the left ovary. The left ovary measures 3.6 x 2.4 x 3.1 cm with a volume of 14.4 ml. There is flow in the left ovary on Doppler imaging. Intraperitoneal space: No free fluid in the pelvis. Urinary bladder: The bladder is incompletely filled, which can limit evaluation. No focal abnormality in the bladder however. US/US pelvic with transvaginal IMPRESSION: 1. No acute abnormality in the pelvis. 2. Incidental/nonacute findings are listed in the report.
[2022-10-15 19:36] LABS: Add Urine Microscopic? YES; Bilirubin Urine Neg (Negative); Blood Urine 3+ (Negative); Glucose Urine UA Norm (Normal); Ketones Urine 1+ (Negative); Leukocyte Esterase Urine Negative (Negative); Nitrate Urine Negative (Negative); Protein Urine 1+ (Negative); RBC Urine TOO NUMEROUS TO CNT /hpf (0-2); Urine Appearance Cloudy (CLEAR); Urine Color Red (Yellow); Urobilinogen Urine Norm (Negative); pH Urine 6 (5-7)
[2022-10-15 19:37] LABS: Add Urine Culture? Yes; Squamous Epithelial Cell Urine 0-4 /hpf (0-5)
== END 2022-10-15 21:37 | disposition home or self-care (01) ==
PROVIDERS: Emergency Provider Physician Assistant; PCP Family Medicine
DX: N92.0 Excessive and frequent menstruation with regular cycle (principal)
CPT/HCPCS: 36415; 76830; 76856; 80053; 81001; 84703; 85025; 87086; 99284